=== PATIENT | male | born 1965 | race Caucasian/White ===

== ENCOUNTER → 2017-05-03 | Outpatient (CLI) | payer OTHER ==
[~2017-05-03] MED LIST: ANDROGEL; ANDROGEL1.25 GM TOP; ANDROGEL150 GM TD; BENICAR40 MG PO; BYSTOLIC 5 MG5 M1 PO; CELEXA20 MG PO; CHLORTHALIDONE25 MG PO; CLONAZEPAM 0.50.5 M1 PO; CLONAZEPAM 1 MG1 M1 PO; CLONIDINE0.1 PO; COZAAR 25 MG TA25 M1 PO; COZAAR 50 MG TA50 MG PO; DAZIDOX10 MG PO; DEPO-TESTO100 MG/1 M IM; DILAUDID 4 MG TA4 M1 PO; DIOVAN HCT 3201 EACH PO; FISHOIL PO; FLUOXETINE HCL40 MG PO; IBUPROFEN 200200 M1 PO; IBUPROFEN PO; INDOMETHACIN SR75 MG PO; MS CONTIN15 MG PO; MULTIVITAMINS PO; NAPROSYN500 MG PO; OPANA ER7.5 MG PO; OXYCODON-ACETA1 EAC1; OXYCODONE HCL15 MG PO; OXYCODONE HCL5 M1 PO; OXYCONTIN10 M1 PO; PERCOCET 5-3251 EACH PO; PREDNISONE 10 M10 MG PO; PREDNISONE 5 MG5 M1 PO; PREVACID 24HR15 MG PO; PRINIVIL10 MG PO; PROZAC 20 MG20 M1 PO; REMICADE 1100 MG/VIA; ROXICODONE15 MG PO; ROXICODONE5 M2 PO; ROXICODONE5 MG PO; TIZANIDINE HCL4 MG PO; VITAMIN B COMP1 EAC7 PO; VOLTAREN GEL 1100 G2 TOP; XANAX 0.25 MG0.25 MG PO; XANAX 0.5 MG0.5 MG PO; ZANAFLEX4 MG PO
--- NOTE | 2017-05-04 08:24 | PAINCON ---
[address] [address] PAIN MANAGEMENT CONSULTATION Name: CHIKIS TATE [id number] Admission: 05/03/17 Attend Phys: [place] Ochoa Discharge: Date of : 65 Report #: [id number] THIS REPORT FOR: //name// CC: Jayesh Tate The patient is a very pleasant 52-year-old gentleman long treated for chronic psoriatic arthritis, history of cervical radiculopathy, myofascial pain requiring high risk complex medication management. Arthritic issues primarily concerned wrists, hips, knees and ankles. The patient has long been stable on oxycodone 15 mg 4 a day. Last seen in the pain clinic on 03/08/2017. Prior in 11/2016, random drug screen is positive for prescribed medications. He returns to the pain clinic today. We had a prolonged visit reviewing therapeutic options and medication decisions. The patient returns to the pain clinic today actually with a prior generated prescription, a 4-week release prescription for his oxycodone. He has begun to wean his medication as we had discussed at prior visits. He notes subjective pain score, rates his pain as 3 on a VAS. He states injections in the past have been very helpful. He does not have any muscle spasms at this time. PHYSICAL EXAMINATION: Shows 6 feet 3 inches, 237 pounds gentleman, BMI is 29 kilograms per meter squared. Blood pressure 136/91, pulse 70 and respirations 16. Alert and oriented to person, place and time, judged to be a reasonable historian. Again some chronic pain in his wrists, knees, low back and neck today. Rises from chair easily. Gait is tandem. Lower extremity strength is preserved. We reviewed the fact that opiate medications are being used to provide analgesia adequate to support activities of daily living, not attempting to achieve a specific pain score on the 0-10 Visual Analog Scale. The current opiate medications are providing sufficient analgesia to allow the patient to participate in activities of daily living. The patient is not exhibiting any aberrant behavior suggestive of drug diversion. The patient is not having any adverse reactions to medications. The patient is not suffering from daytime somnolence or mental acuity changes. The patient is managing opiate-induced constipation with appropriate friv-nph-lplqscd agents and dietary considerations. The patient was counseled on concern for caution with operating a motor vehicle while using opiate medications. A physical exam was performed and the patient's functional status was evaluated. All patients with back pain were advised against the bed rest greater than 4 days and were advised to return to normal activities. Pain score assessment was noted and the treatment plan was reviewed with the patient. All current medications, both prescribed and OTC were [place] [address] PAIN MANAGEMENT CONSULTATION Name: CHIKIS TATE Room: [facility] Gomez#: [id number] Admission: 05/03/17 Attend Phys: [place] Ochoa Discharge: Date of : 65 Report #: [id number] electronic medical record. Tobacco screening was accomplished and smoking cessation was advised when indicated. BMI was noted and diet/exercise modification was recommended for all patients following outside normal parameters. I reviewed with the patient today their responsibilities to safeguard prescription medications, reviewed their responsibility to utilize medications only as prescribed by the physician. They are to seek and receive pain medications only from 1 physician group ( [facility]). They are to use 1 pharmacy and keep the clinic informed if they change pharmacies. Their responsibilities include making followup visits in a timely fashion and to avoid abrupt discontinuation of medication usage. Their responsibilities further include bringing their medications (bottles from the pharmacy with residual pills) to the visit for possible confirmation of pill counts and the patient understands it is their responsibility to submit to random drug screens to ensure both that the medications prescribed are present, and that no other controlled substances are present. All prescriptions provided today were generated electronically. Pain impact score is actually fairly low, 13/70. Opiate risk assessment tool anyway is noted fairly low. We discussed therapeutic options at length today and did review the opiate consent to treat contract. The patient was actually seen for over 25 minutes spent reviewing the consent to treat contract. We have discussed finding the lowest possible effective dose of opiate use and discussed concerns for opiate habituation, tolerance with the opiate crisis in [place] looming in the news. After discussion, we have elected to rotate from oxycodone 15 mg 4 a day to oxycodone 5 mg 1-2 tablets 3-4 times a day, limit 200 tablets for 30 days. This averages to roughly 33.33 mg oxycodone a day down from 45-60 mg. I did take the liberty of writing for 3 months of this medication. I will be happy to see the patient in 1 month if we need to titrate up a little bit. He has tizanidine to take p.r.n. He does use Voltaren gel topically and does not require renewal for the same. Discharged in good and stable condition today after prolonged visit, spent reviewing multiple therapeutic concerns and counseling the patient. <ELECTRONICALLY SIGNED> By: Ayaz Tate DO 05/04/17 0824 [id number] Tate DO /stuart
== END ==
LOC: M.PC 01:23
DX: L40.59 Other psoriatic arthropathy (principal); M54.12 Radiculopathy, cervical region; M79.1 Myalgia; M13.832 Other specified arthritis, left wrist; M13.831 Other specified arthritis, right wrist; M13.852 Other specified arthritis, left hip; M13.851 Other specified arthritis, right hip; M13.872 Other specified arthritis, left ankle and foot; M13.871 Other specified arthritis, right ankle and foot; Z79.899 Other long term (current) drug therapy

== ENCOUNTER → 2017-10-18 | Outpatient (CLI) | payer OTHER ==
--- NOTE | 2017-10-19 07:04 | PAINCON ---
[address] [address] PAIN MANAGEMENT CONSULTATION Name: CHIKIS TATE [facility] [id number] Admission: 10/18/17 Attend Phys: [place] Ochoa Discharge: Date of : 65 Report #: [id number] THIS REPORT FOR: //name// CC: Jayesh Tate DATE OF SERVICE: 10/18/2017 SUBJECTIVE: The patient is a 52-year-old gentleman long treated in the Pain Clinic for psoriatic arthritis, cervical radiculopathy, myofascial pain requiring complex medication management. He had been stable on high dose opiates, oxycodone 15 mg 4 a day. Prior random drug screens were positive for prescribed medications. We had elected to try and wean opiate analgesics over time. Last visit on 05/03/2017, we had rotated to oxycodone 5 mg 1-2 tablets 3-4 times a day. In the interval since we last saw him, which has now been greater than 6 months, patient self weaned off of opiates. He got down to a very low dose and occasionally zero opiates were found. Functional status was quite poor and he was using a supratherapeutic dose of dqnt-pln-jvjasym NSAID agents. He returns to pain clinic today. We had a prolonged visit, greater than 25 minutes was spent reviewing therapeutic options and interval history. Ongoing psoriatic arthritis in a gentleman. He remains quite functional, subjective pain score is 4 to a VAS. Generalized pain in his neck, low back, hips and feet. Alert and oriented to person, place and time, judged to be a reasonable historian. He has lost about 30 pounds since his last visit. He has been exercising and increasing activity. Rates his subjective pain score of 4 on a VAS. We reviewed the fact that opiate medications are being used to provide analgesia adequate to support activities of daily living, not attempting to achieve a specific pain score on the 0-10 Visual Analog Scale. The current opiate medications are providing sufficient analgesia to allow the patient to participate in activities of daily living. The patient is not exhibiting any aberrant behavior suggestive of drug diversion. The patient is not having any adverse reactions to medications. The patient is not suffering from daytime somnolence or mental acuity changes. The patient is managing opiate-induced constipation with appropriate ygts-ujl-ugjbcsd agents and dietary considerations. The patient was counseled on concern for caution with operating a motor vehicle while using opiate medications. A physical exam was performed and the patient's functional [place] [address] PAIN MANAGEMENT CONSULTATION Name: CHIKIS TATE [facility] [id number] Admission: 10/18/17 Attend Phys: [place] Ochoa Discharge: Date of : 65 Report #: [id number] All patients with back pain were advised against the bed rest greater than 4 days and were advised to return to normal activities. Pain score assessment was noted and the treatment plan was reviewed with the patient. All current medications, both prescribed and OTC were reviewed and reconciled on the electronic medical record. Tobacco screening was accomplished and smoking cessation was advised when indicated. BMI was noted and diet/exercise modification was recommended for all patients following outside normal parameters. I reviewed with the patient today their responsibilities to safeguard prescription medications, reviewed their responsibility to utilize medications only as prescribed by the physician. They are to seek and receive pain medications only from 1 physician group ( [facility]). They are to use 1 pharmacy and keep the clinic informed if they change pharmacies. Their responsibilities include making followup visits in a timely fashion and to avoid abrupt discontinuation of medication usage. Their responsibilities further include bringing their medications (bottles from the pharmacy with residual pills) to the visit for possible confirmation of pill counts and the patient understands it is their responsibility to submit to random drug screens to ensure both that the medications prescribed are present, and that no other controlled substances are present. All prescriptions provided today were generated electronically. PHYSICAL EXAMINATION: Shows 6 feet 3 inch tall, 207-pound gentleman, BMI is 26 kg/m2. Blood pressure 125/83, pulse 90s respirations 16. Cranial nerves 2-12 are grossly intact. Alert and oriented to person, place and time, judged to be a reasonable historian. Cervical range of motion is good. Upper extremity strength is preserved. Again, diffuse tenderness in his back, hands, hips and neck. Rises from the chair easily, stiff in the mornings. Lumbar range of motion is limited. Gait is tandem. No discrete skin changes are noted. ASSESSMENT: Chronic axial back pain, history of psoriatic arthritis, relatively controlled on current medications, requiring complex medication management. RECOMMENDATIONS: 1. Discussion with the patient today about therapeutic option. We have elected to rotate naproxen sodium 500 mg b.i.d. and eschew all vsjw-czg-lmdhppr anti-inflammatories. 2. Continue oxycodone 5 mg 1 tablet 4 times a day, limit to 120 tablets with a prescription to be release today and in 4 weeks. Follow up in 2 months for reevaluation. 3. Continue to use lowest opiate possible. The patient has come down significantly on his overall opiate load. Again, he had been taking 15 mg 4 times a day equivalent to 90 mg morphine equivalent. Now, he is taking at most 30 mg and typically closer to 5-10 mg [place] [address] PAIN MANAGEMENT CONSULTATION Name: CHIKIS TATE [facility] [id number] Admission: 10/18/17 Attend Phys: [place] Ochoa Discharge: Date of : 65 Report #: [id number] Discharged in good stable condition after prolonged visit. The patient was congratulated on his opiate wean. <ELECTRONICALLY SIGNED> By: Ayaz Tate DO 10/19/17 0704 [id number] Tate DO /nt
== END ==
LOC: M.PC 04:45
DX: M54.12 Radiculopathy, cervical region (principal); G89.29 Other chronic pain; Z79.899 Other long term (current) drug therapy

== ENCOUNTER → 2018-01-11 | Outpatient (CLI) | payer OTHER ==
--- NOTE | 2018-01-22 10:00 | PAINCON ---
[address] [address] PAIN MANAGEMENT CONSULTATION Name: CHIKIS TATE Room: [facility] Jasno#: [id number] Admission: 01/11/18 Attend Phys: Jenny Hidalgo MD Discharge: Date of : 65 Report #: [id number] THIS REPORT FOR: //name// CC: Jenny Boyer DO DATE OF SERVICE: 01/11/2018 HISTORY OF PRESENT ILLNESS: The patient is a 52-year-old gentleman who has been followed in the Pain Clinic by Dr. Ayaz Tate. This is my first visit with the patient. He has a history of psoriatic arthritis. He has arthritic pains in quite a number of areas including his feet as well as some number of bones and joints. Rates his pain as 3-4 at this point, 5 at its worst. States that he works at a [employer], which is quite large. He requires quite a bit of walking. He notes that that exacerbates his pain and discomfort. He has noted some elevation of his blood pressures secondary to use of nonsteroidal anti-inflammatory medications. He finds that he is quite stiff in the morning. He is going to contact his primary in regards to the possible changing of his medications to see if there is another nonsteroidal or anti-inflammatory medication he can take that would be less problematic with his blood pressure. He has a history of cervical radiculopathy as well. He has been treated with complex medical regimen. The arthritic areas of concern are mostly his wrists, hips, knees, ankles and having some increased problems with his joints in his toes. He has been stable on his current medication of Roxicodone 5 mg up to 4 tablets per day. He has been compliant with the rules and regulations of the Pain Clinic. He returns today for renewal of his medications. He has been unable to take the biologics. He states that the briggs of these medications are quite costly. He has not been able to undergo injections here in the Pain Clinic again secondary to the escalating cost of the procedures. ALLERGIES: PENICILLIN. MEDICATIONS: Alprazolam 0.5 mg t.i.d., chlorthalidone 25 mg, Voltaren gel 2 g topical q.i.d., fish oil 1000 mg, losartan 25 mg, a total of 50 daily, multivitamin, oxycodone 5 mg 1 p.o. q.i.d., tizanidine 4 mg 1 p.o. t.i.d., ibuprofen 600 mg p.r.n. PAST MEDICAL HISTORY: Symptomatic lumbar spondylosis, degenerative joint disease, lumbar radiculopathy, inflammatory arthritis, cervical radiculopathy, and hypertension. PAST SURGICAL HISTORY: Appendectomy in 1980. REVIEW OF SYSTEMS: [place] [address] PAIN MANAGEMENT CONSULTATION Name: CHIKIS TATE Room: [facility]#: [id number] Admission: 01/11/18 Attend Phys: Jenny Hidalgo MD Discharge: Date of : 65 Report #: [id number] DIAGNOSTIC DATA: MRI of thoracic and cervical spine on 09/03/2008: 1. Mild degenerative spondylosis of the cervical spine with some posterior hypertrophic changes at the C5-C6 disk space to a mild degree. 2. Negative for any spinal cord abnormalities. 3. Normal locations of cerebellar tonsils. 4. Negative for any focal protrusions or neural foraminal stenosis. PAIN CLINIC ASSESSMENT/PQRS: 1. The patient is not being treated for osteoarthritis. He has been treated for rheumatoid arthritis and has this ongoing process for about the last 20 years. 2. Height 6 feet 3 inches, weight 253 pounds, BMI is 28.3. 3. Vital signs: Blood pressure 135/93, heart rate 78, respiratory rate 16, room air saturation 98%, temperature 97.6. 4. Pain intensity: 3-4/10, increases to 5 at its worse. 5. Fall risk: The patient has not fallen in the last 3 months. 6. Blood thinner: The patient is not on a blood thinning medication. 7. Hypertension: The patient is being treated for hypertension. 8. Opioid therapy greater than 6 weeks: The patient gets his medication from one source from the Pain Clinic. 9. Risk assessment tool: Low for opioid use. 10. Functional assessment tool. 11. Recreational drug use: The patient denies. 12. Tobacco: The patient does not smoke. 13. Alcoholic beverage: The patient drinks 1 alcoholic beverage during the week. PHYSICAL EXAMINATION: GENERAL: The patient is a well-developed, well-nourished, white male. He appears his stated age. He is alert and oriented x 3. His affect is appropriate. Speech is fluent. HEENT: Normocephalic, atraumatic. Extraocular muscles intact. Sclerae nonicteric. Mucous membranes are moist. NECK: Without adenopathy or JVD. HEART: Regular rate. S1 and S2. LUNGS: Clear to auscultation. ABDOMEN: Nontender. Bowel sounds are present. MUSCULOSKELETAL: Upper extremity muscle strength is judged to be 5/5 for the major muscle groups in the upper extremity without loss of muscle bulk. Lower extremity, the patient has some pain and discomfort in the hips as well as pain in his feet. Muscle strength in the lower extremity is judged to be 5/5 for the most major muscle groups. IMPRESSION: 1. Psoriatic arthritic changes in a number of joints. 2. Symptomatic [place] [address] PAIN MANAGEMENT CONSULTATION Name: CHIKIS TATE Room: [facility]#: [id number] Admission: 01/11/18 Attend Phys: Jenny Hidalgo MD Discharge: Date of : 65 Report #: [id number] 3. Degenerative joint disease. 4. Lumbar radiculopathy. 5. Inflammatory arthritis. 6. Cervical radiculopathy. 7. Hypertension RECOMMENDATIONS: We discussed treatment options with the patient. Risks and benefits of use of opioid medication was discussed. Possible complications could include addiction as well as less effectiveness of the medication as tolerance develops. The patient does not feel tolerance is developing. He feels his medications are helpful. They enable him to stay gainfully employed and walk around his building. He would like to continue his medications. He will follow up with his primary physician in regards to whether or not there is another antihypertensive that he can take in conjunction with a nonsteroidal anti-inflammatory medication. We would like to thank you for letting us participate in his care. We hope he continues to improve. <ELECTRONICALLY SIGNED> By: Jenny Hidalgo MD 01/22/18 1000 [id number]. Jeb Hidalgo MD /stuart
== END ==
LOC: M.PC 04:46
DX: M47.26 Other spondylosis with radiculopathy, lumbar region (principal); L40.59 Other psoriatic arthropathy; I10 Essential (primary) hypertension

== ENCOUNTER → 2018-04-12 | Outpatient (CLI) | payer OTHER ==
--- NOTE | ~2018-04-12 | PAINCON ---
[address] [address] PAIN MANAGEMENT CONSULTATION Name: CHIKIS TATE Room: [facility] Jason#: [id number] Admission: 04/12/18 Attend Phys: Jenny Hidalgo MD Discharge: Date of : 65 Report #: [id number] THIS REPORT FOR: //name// CC: Jenny Boyer DATE OF SERVICE: 04/12/2018 CHIEF COMPLAINT: Foot pain. FOLLOWUP HISTORY: The patient is a 52-year-old gentleman who has been followed in the pain clinic. He has pain and discomfort from psoriatic arthritis. He has arthritic pains involving his feet. He also has pain involving a number of joints. He rates his pain today as a 2-3. He has been off work for the [place] vacation. He is working he has been standing on his feet, the whole lot less. Pain is much less, uncomfortable. He continues to use nonsteroidal anti-inflammatory medication to help with his pain. He does have quite a bit of morning stiffness. He also has a history of cervical radiculopathy. Most of his concerns of those in his wrists, hips, knees, ankles and increasing problems in his joints in his toes. He feels that his current medications of Roxicodone 5 mg up to 4 times daily are helpful. He feels that tizanidine muscle relaxant beneficial as well. He has considered use of biologics. He was told that it is about $4000 a month for these medications. He is not covered by his current insurance. ALLERGIES: PENICILLIN. CURRENT MEDICATIONS: Alprazolam 0.5 mg t.i.d., chlorthalidone 25 mg, Voltaren gel 2 g topical q.i.d., fish oil 1000 mg, losartan 25 mg a total of 50 per daily, multivitamin, oxycodone 5 mg 1 p.o. q.i.d., tizanidine 4 mg 1 p.o. t.i.d., and ibuprofen 600 mg p.r.n. PAIN CLINIC ASSESSMENT/PQRS: 1. The patient has been treated for psoriatic arthritis. He has not been treated at this juncture for osteoarthritis. 2. Rheumatoid problem has been ongoing for about the last 20 years. 3. Height 6 feet 3 inches, weight 207 pounds, BMI is 28.3. 4. Vital Signs: Blood pressure 137/88, heart rate 72, respiratory rate 16, room air saturation 97%, and temperature 98.5. 5. Pain intensity 3-4/10. 6. Fall risk. The patient has not fallen in the last 3 months. 7. Blood thinner. The patient is not on a blood thinning medication. 8. Hypertension. The patient is being treated for hypertension. 9. Opioid greater than 6 weeks. The patient receives medication from one source, the [facility]. 10. Risk assessment tool, [place] [address] PAIN MANAGEMENT CONSULTATION Name: CHIKIS TATE Room: [facility] Jason#: [id number] Admission: 04/12/18 Attend Phys: Jenny Hidalgo MD Discharge: Date of : 65 Report #: [id number] 11. Functional assessment tool. 12. Tobacco: The patient denies use of tobacco. 13. Alcoholic beverages. The patient denies alcoholic beverages. He drinks about one beverage weekly. PHYSICAL EXAMINATION: GENERAL: The patient is a well-developed, well-nourished white male. He appears his stated age. his stated age. He is alert and oriented x 3. His effects appropriate. Speech is fluent. HEENT: Normocephalic, atraumatic. Extraocular eye muscles intact. Sclerae nonicteric. NECK: Without adenopathy or JVD. HEART: Regular rate. S1, S2. LUNGS: Clear to auscultation without rhonchi or rales. ABDOMEN: Nontender. Bowel sounds present. MUSCULOSKELETAL: Judged to be 5/5 for the major muscle groups in the upper extremity. The patient has some pain and discomfort in his hips. His pain down in his feet near the toe area, he has less pain now. He has been off work for about a week and having less discomfort at this juncture. Muscle strength in the lower extremity judged to be 5/5 for the major muscle groups. No significant sensory changes in the lower extremities, neck or upper extremity. IMPRESSION: 1. Psoriatic arthritis changes in a number of joints. 2. Symptomatic lumbar spondylosis. 3. Degenerative joint disease. 4. Lumbar radiculopathy. 5. Inflammatory arthritis. 6. Cervical radiculopathy. 7. Hypertension. RECOMMENDATIONS: We discussed treatment options with the patient. We will continue with his current medical regimen of oxycodone. The patient will also continue with his nonsteroidal anti-inflammatory medications. He would like to try the biologics. He has been told that it costs about $4000 dollars per a month. Until his insurance covers that this is just not going to be an option. We would like to thank you for letting us participate in his care. A script for oxycodone 5/325 one p.o. q. 4-6 hours p.r.n. when working have been provided. By: [id number]. Jeb Hidalgo MD /stuart
== END ==
LOC: M.PC 08:10
DX: M47.26 Other spondylosis with radiculopathy, lumbar region (principal); M06.4 Inflammatory polyarthropathy; L40.59 Other psoriatic arthropathy; I10 Essential (primary) hypertension

== ENCOUNTER → 2018-07-05 | Outpatient (CLI) | payer OTHER ==
--- NOTE | ~2018-07-05 | PAINCON ---
[address] [address] PAIN MANAGEMENT CONSULTATION Name: CHIKIS TATE [id number] Admission: 07/05/18 Attend Phys: Jenny Hidalgo MD Discharge: Date of : 65 Report #: [id number] THIS REPORT FOR: //name// CC: Jenny Boyer DO DATE OF SERVICE: 07/05/2018 CHIEF COMPLAINT: Cervical radicular pain. HISTORY: The patient is a 53-year-old gentleman who has been followed in the Pain Clinic because of cervical radiculopathy. He also suffers from rheumatoid arthritis. His job is somewhat physical. He has considered a biological agent. He has been told that it could be anywhere from 6899-9459 dollars monthly for this. At this juncture, he is unable to afford this because of his deduction insurance policy. He rates his pain as a 3/10. Feels that oftentimes when he returns home by the end of the day, his pain is so great that he is unable to rest comfortably. He would like to have the oxycodone medication increase by 1 tablet. Feels that this would give him better pain control in the evening. He is taking his medication as prescribed. He notes that there is quite a bit of morning stiffness. Has some soreness in his right elbow area and the tennis elbow involvement. Has pain in his wrists, hips, knees, ankles and the joints of his toes. Feels that the muscle relaxant is helpful as well. ALLERGIES: PENICILLIN. CURRENT MEDICATIONS: Alprazolam 0.5 mg t.i.d., chlorthalidone 25 mg, Voltaren gel 2 g topical q.i.d., fish oil 1000 mg, losartan 25 mg, multivitamin, oxycodone 5 mg 1 p.o. q.i.d., tizanidine 4 mg t.i.d., ibuprofen 600 mg p.r.n. PAIN CLINIC ASSESSMENT/PQRS: 1. The patient is not being treated for osteoarthritis. He does have psoriatic arthritis. 2. Rheumatoid arthritis and this has been ongoing for the last 20 years. 3. Height 6 feet 3 inches, weight 208 pounds. BMI is 26. 4. Vital signs: Blood pressure 131/95, heart rate 77, respiratory rate 16, room air saturation 98%, and temperature 98.2. 5. Pain intensity 3/10. 6. Fall history: The patient has not fallen in the last 3 months. 7. Blood thinner. The patient is not on a blood thinning medication. 8. Hypertension. The patient is being treated for hypertension. 9. Opioids greater than 6 weeks. The patient receives his medications from one source, the Pain Clinic. 10. Risk assessment tool, low for opioid use. 11. [place] [address] PAIN MANAGEMENT CONSULTATION Name: CHIKIS TATE Room: [facility]#: [id number] Admission: 07/05/18 Attend Phys: Jenny Hidalgo MD Discharge: Date of : 65 Report #: [id number] 12. Recreational drug use. The patient denies use of recreational drugs. 13. Tobacco: The patient denies other than occasional alcoholic beverage. PHYSICAL EXAMINATION: GENERAL: The patient is a well-developed, well-nourished white male. Appears his stated age. He is alert and oriented x 3. His affect is appropriate. Speech is fluent. HEENT: Normocephalic, atraumatic. Extraocular muscles intact. Sclerae nonicteric. Mucous membranes are moist. NECK: Without adenopathy or JVD. HEART: Regular rate. S1, S2. LUNGS: Clear to auscultation without rhonchi or rales. ABDOMEN: Nontender. Bowel sounds present. MUSCULOSKELETAL: Judged to be 5/5 in the major muscle groups in the upper extremity. The patient has a compression item on his right arm for a tennis elbow type discomfort. The patient has some discomfort in his hips. He complains of pain in his feet and toes. IMPRESSION: 1. Psoriatic arthritis changes in number of joints. 2. Symptomatic lumbar spondylosis. 3. Degenerative joint disease. 4. Lumbar radiculopathy. 5. Inflammatory arthritis. 6. Cervical radiculopathy. 7. Hypertension. RECOMMENDATIONS: We discussed treatment options with the patient. We will continue with his current medical regimen. A script for his medications has been renewed. The patient feels that his pain is quite problematic particularly in the evening time. He would like to increase his oxycodone by one tablet. We will have the patient take 2 tablets of 5 mg in the morning, one at midday and two in the evening. A script for his medications of oxycodone have been written. He will call us if he has any concerns. We would like to thank you for letting us participate in his care. The patient will continue with tizanidine p.r.n. as needed. By: 0929 [id number]. Jeb Hidalgo MD /nt
== END ==
LOC: M.PC 00:27
DX: M47.26 Other spondylosis with radiculopathy, lumbar region (principal); L40.52 Psoriatic arthritis mutilans; M19.90 Unspecified osteoarthritis, unspecified site; I10 Essential (primary) hypertension; Z79.899 Other long term (current) drug therapy

== ENCOUNTER → 2018-10-02 | Outpatient (CLI) | payer OTHER ==
--- NOTE | ~2018-10-02 | PAINCON ---
[address] [address] PAIN MANAGEMENT CONSULTATION Name: CHIKIS TATE Nahomi Room: [facility] Jason#: [id number] Admission: 10/02/18 Attend Phys: Jenny Hidalgo MD Discharge: Date of : 65 Report #: [id number] THIS REPORT FOR: //name// CC: Jenny Boyer DO DATE OF SERVICE: 10/02/2018 FOLLOWUP HISTORY: Here for medication management and evaluation. HISTORY: The patient is a 53-year-old gentleman who has been followed in the Pain Clinic. He has a history of cervical radiculopathy. He also has a problem with rheumatoid arthritis. His job continues to be physical. He continues to work on a regular basis. At this point, he is unable to undergo treatment for the rheumatological problems because of the expense of the biologic agents. He feels that his medications at this point of oxycodone, ibuprofen and tizanidine have been helpful. At this juncture, he feels that the tizanidine is no longer needed, he rarely uses it. He would like to continue with the oxycodone, which he takes on a regular basis. He is aware that the opioid medications can be a problem. He rates his pain as a 2-3 at this point. He Feels his medications are working well. He has some pain in his wrists, hips, knees, ankles and number of areas. He notes that standing, walking, bending, lifting and twisting can be problematic. ALLERGIES: PENICILLIN. CURRENT MEDICATIONS: Alprazolam 0.5 mg t.i.d., chlorthalidone 25 mg, Voltaren gel 2 g topical q.i.d., fish oil 1000 mg, losartan 25 mg, multivitamin, oxycodone 5 mg 1 p.o. q.i.d. The patient does not feel that tizanidine needs to be continued, ibuprofen 600 mg. PAIN CLINIC ASSESSMENT/PQRS: 1. The patient is not being treated for osteoarthritis. He does have psoriatic arthritis. 2. The patient has been treated for rheumatoid arthritis for the last 20 years. 3. Height 6 feet 3 inches, weight 206 pounds, BMI is 26. 4. Vital Signs: Blood pressure 147/90, heart rate 75, respiratory rate 16, room air saturation is about 98%. 5. Temperature 97.5. 6. Pain intensity is 2-3/10. 7. Fall history: The patient has not fallen in the last 3 months. 8. Blood thinner. The patient is not on a blood thinning medication. 9. Hypertension. The patient is being treated for hypertension. 10. Opioid greater than 6 weeks. The patient received medication [facility] [place] [address] PAIN MANAGEMENT CONSULTATION Name: CHIKIS TATE Room: [facility]#: [id number] Admission: 10/02/18 Attend Phys: Jenny Hidalgo MD Discharge: Date of : 65 Report #: [id number] 11. Risk assessment tool, low for opioid use. 12. Functional assessment tool. 13. Recreational drug use. The patient denies use of recreational drugs. 14. Tobacco: The patient denies use of recreational drugs and denies use of other than occasional alcoholic beverage. PHYSICAL EXAMINATION: GENERAL: The patient is a well-developed, well-nourished white male. Appears his stated age. He is alert and oriented x 3. His affect is appropriate. Speech is fluent. HEENT: Normocephalic, atraumatic. Extraocular eye muscles intact. Sclerae nonicteric. Mucous membranes are moist. NECK: Without adenopathy or JVD. HEART: Regular rate. S1, S2. LUNGS: Clear to auscultation without rhonchi or rales. ABDOMEN: Nontender. Bowel sounds are present. MUSCULOSKELETAL: The patient is judged to be 5/5 in the major muscle groups in the upper extremities. The patient has some discomfort in his hips, hands and elbows. IMPRESSION: 1. Psoriatic arthritis. 2. Symptomatic lumbar spondylosis. 3. Degenerative joint disease. 4. Lumbar radiculopathy. 5. Inflammatory arthritis. 6. Cervical radiculopathy. 7. Hypertension. RECOMMENDATIONS: We discussed treatment options with the patient. At this juncture, we will continue with his current medications. He feels that the oxycodone medications are helpful. Again, we discussed the risks and benefits of opioid use. They can be helpful for most people. can have problems with the results of use of opioid medications with development of dependency. He does not feel that he is dependent. He has taken medications as prescribed. They enable him to continue to be gainfully employed and help with pain control. He has been continuing to use ibuprofen. He has no problems with his GI at this juncture. We reminded him the possibility of aspirin related medications and GI upset. He does not feel that he needs the tizanidine at this point. He is not taking it very often. He will continue with his medications. A script for his medications of oxycodone 5 mg 1 p.o. t.i.d., total 150 tablets has been written. The patient takes 2 tablets in the morning, one tablet midday and 2 tablets at bedtime. He will also continue with the ibuprofen. He will call us if he has any concerns. We would like to thank you for letting us participate in his care. We will continue with his complicated medical management using opioid medications. The patient states that he does not smoke. He had a drug [facility] [address] [place] [address] PAIN MANAGEMENT CONSULTATION Name: CHIKIS TATE Nahomi Room: [facility]#: [id number] Admission: 10/02/18 Attend Phys: Jenny Hidalgo MD Discharge: Date of : 65 Report #: [id number] screen, which showed nicotine and the client denies use of nicotine any circumstances. He also states that he has been taking his opioid medications as prescribed. The oxycodone daily has prescribed. These were negative. I am not sure, but seems to have some spurious results. Did not cooperate with the patient. Given that the nicotine is there. I do note that this was result for this patient. We will review it again in the future. By: 0849 LeeN. Jeb Hidalgo MD /LYLA
== END ==
LOC: M.PC 09-27 08:00
DX: M47.26 Other spondylosis with radiculopathy, lumbar region (principal); I10 Essential (primary) hypertension; L40.50 Arthropathic psoriasis, unspecified; Z79.899 Other long term (current) drug therapy

== ENCOUNTER → 2018-12-27 | Outpatient (CLI) | payer OTHER ==
--- NOTE | 2018-12-31 09:16 | PAINCON ---
[address] [address] PAIN MANAGEMENT CONSULTATION Name: CHIKIS TATE Nahomi [facility] [id number] Admission: 12/27/18 Attend Phys: Jenny Hidalgo MD Discharge: Date of : 65 Report #: [id number] THIS REPORT FOR: //name// CC: Jenny Boyer DO DATE OF SERVICE: 12/27/2018 CHIEF COMPLAINT: Cervical neck pain. HISTORY: The patient is a 53-year-old gentleman who has been followed in the pain clinic. As you may recall, he has some cervical radicular pain. He also suffers from rheumatoid arthritis. Continues and has a very hectic job. It is very physical. He feels that his medications enable him to stay gainfully employed in this field. He has not been able to use a biological agents for his rheumatoid secondary to the cost. Continues to have pain in the upper as well as in his lower back. He has started a new medication for his arthritis. Has returned to work. He has quite a bit of discomfort because he works on his feet all day. He has returned today with the hope of renewing his medications of oxycodone. ALLERGIES: PENICILLIN. CURRENT MEDICATIONS: Alprazolam 0.5 mg, chlorthalidone 25 mg, Voltaren gel 2 g topical q.i.d., fish oil 1000 mg, losartan 25 mg, multivitamins, oxycodone 5 mg 1 p.o. q.i.d., and ibuprofen 600 mg b.i.d. PAIN CLINIC ASSESSMENT/PQRS: 1. The patient is not being treated for osteoarthritis. He does have psoriatic arthritis. 2. Height 6 feet 3 inches, weight 202 pounds, BMI is 25. 3. Vital signs: Blood pressure 154/74, heart rate 72, respiratory rate 18, room air saturation is 99, temperature 97.7. 4. Pain intensity 06/17. 5. Fall history: The patient has not fallen in the last 3 months. 6. Blood thinner. The patient is not on a blood thinning medication. 7. Hypertension. The patient is being treated for hypertension. 8. Opioids greater than 6 weeks. The patient received medication from one source the pain clinic. 9. Risk assessment tool, low for opioid use. 10. Functional assessment tool. 11. Recreational drug use. The patient denies. 12. Tobacco: The patient denies use of recreational drugs other [place] [address] PAIN MANAGEMENT CONSULTATION Name: CHIKIS TATE Room: [facility]#: [id number] Admission: 12/27/18 Attend Phys: Jenny Hidalgo MD Discharge: Date of : 65 Report #: [id number] PHYSICAL EXAMINATION: GENERAL: The patient is a well-developed, well-nourished white male. Appears his stated age. He is alert and oriented x 3. His affect is appropriate. Speech is fluent. HEENT: Normocephalic, atraumatic. Extraocular eye muscles intact. Sclerae nonicteric. Mucous membranes are moist. NECK: Without adenopathy or JVD. HEART: Regular rate. S1, S2. LUNGS: Clear to auscultation without rhonchi or rales. ABDOMEN: Nontender. Bowel sounds present. MUSCULOSKELETAL: The patient has pain in the upper extremity. Muscle strength judged to be 5/5 for the major muscle groups in the upper extremity. The patient has some discomfort in his hips, hands, and down his elbows because of the arthritis. IMPRESSION: 1. Psoriatic arthritis. 2. Symptomatic lumbar spondylosis. 3. Degenerative joint disease. 4. Lumbar radiculopathy. 5. Inflammatory arthritis. 6. Cervical radiculopathy. 7. Hypertension. RECOMMENDATIONS: We discussed treatment options with the patient. At this juncture, we will continue with his medications. He feels that the medications are helpful. He is aware that opioid medications can be helpful, but can become less potent as time goes by because of development of tolerance. He feels that the medications continue to be helpful. He would like to have the Roxicodone medications renewed. A script for his medications of Roxicodone 5 mg, total of 150 tablets per month have been released. The patient will continue with the ibuprofen. He will monitor his GI tract with hopes that he does not have any side effects from it is chronic use. Hopefully, the patient's new medication for his arthritis will be efficacious as well. He will call us if he has any concerns. We would like to thank you for letting us participate in his care. We hope he continues to improve. <ELECTRONICALLY SIGNED> By: Jenny Hidalgo MD 12/31/18 0916 [id number]. Jeb Hidalgo MD /LYLA
== END ==
LOC: M.PC 05:03
DX: Z88.0 Allergy status to penicillin (principal); M47.26 Other spondylosis with radiculopathy, lumbar region; L40.50 Arthropathic psoriasis, unspecified; I10 Essential (primary) hypertension; Z79.899 Other long term (current) drug therapy; Z79.891 Long term (current) use of opiate analgesic

== ENCOUNTER → 2019-03-19 | Outpatient (CLI) | payer OTHER ==
[~2019-03-19] MED LIST changes: +ORENCIA CL125 MG/1 M SUBQ
--- NOTE | ~2019-03-19 | PAINCON ---
[address] [address] PAIN MANAGEMENT CONSULTATION Name: CHIKIS TATE Nahomi [id number] Admission: 03/19/19 Attend Phys: Jenny Hidalgo MD Discharge: Date of : 65 Report #: [id number] THIS REPORT FOR: //name// CC: Jenny Boyer DATE OF SERVICE: 03/19/2019 CHIEF COMPLAINT: Neck pain. HISTORY: The patient is a 53-year-old gentleman who has been followed in the pain clinic because of pain in number of areas. He does suffer from psoriatic arthritis, has some pain involving his feet, back and hands. This has been ongoing for a number of years. He feels that his current use of oxycodone and ibuprofen enable him to stay gainfully employed. The patient is unable because of the cost to undergo a biologic agent treatment for his rheumatological problem. He has noted some worsening of his pain because of the increased work and over time that he is doing. Notes that the pain is worse when he is walking, standing, climbing stairs, sitting, bending, and lifting. ALLERGIES: PENICILLIN. CURRENT MEDICATIONS: Alprazolam 0.5 mg, chlorthalidone 25 mg, Voltaren gel 2 g topical q.i.d., fish oil 1000 mg, losartan 25 mg, multivitamins, oxycodone 5 mg 1 p.o. q.i.d., ibuprofen 600 mg b.i.d. PAIN CLINIC ASSESSMENT AND PQRS: 1. The patient is not being treated for osteoarthritis. He does have psoriatic arthritis. 2. Height 6 feet 3 inches, weight 214 pounds, BMI is 26.7. 3. Vital Signs: Blood pressure 147/86, heart rate 80, respiratory rate 16, room air saturation oxygen 99%, temperature 98.0. 4. Pain intensity score is 2/10. 5. Fall history: The patient has not fallen in the last 3 months. 6. Blood thinner. The patient is not on a blood thinning medication. 7. Hypertension. The patient is being treated for hypertension. 8. Opioids greater than 6 weeks. The patient received medication from one source, the pain clinic. 9. Risk assessment tool, low for opioid use. 10. Functional assessment tool. 11. Recreational drug use: The patient denies. 12. Tobacco: The patient denies use of recreational drugs other than occasional alcoholic beverage. PHYSICAL EXAMINATION: GENERAL: The patient is a well-developed, well-[place] [address] PAIN MANAGEMENT CONSULTATION Name: CHIKIS TATE Room: [facility]#: [id number] Admission: 03/19/19 Attend Phys: Jenny Hidalgo MD Discharge: Date of : 65 Report #: [id number] his stated age. He is alert and oriented x 3. His affect is appropriate. Speech is fluent. HEENT: Normocephalic, atraumatic. Extraocular eye muscles intact. Sclerae nonicteric. Mucous membranes are moist. NECK: Without adenopathy or JVD. HEART: Regular rate. ABDOMEN: Nontender. Bowel sounds present. LUNGS: Clear to auscultation without rhonchi or rales. MUSCULOSKELETAL: The patient's upper extremity muscle strength judged to be 5/5 for the major muscle groups. The patient does complain of some pain and discomfort down into his back and feet. Notes that standing and walking at work exacerbates his discomfort. Continues to have pain in the hips, hands, and down to his elbow because of the arthritis. IMPRESSION: 1. Psoriatic arthritis with pain. 2. Symptomatic lumbar spondylosis. 3. Degenerative joint disease. 4. Lumbar radiculopathy. 5. Inflammatory arthritis. 6. Cervical radiculopathy. 7. Hypertension. RECOMMENDATIONS: We discussed treatment options with the patient. Risks and benefits of opioid medications were discussed. The patient feels that the use of the nonsteroidal anti-inflammatory medications are helpful. He is not having any problems with his GI tract. He will stop taking the medication should he note some GI irritation. The patient finds that the use of oxycodone is helpful. He is able to continue to be gainfully employed. He is not causing any problems with his sensorium. He is not having any other complications associated with opioids. He is aware that opioid medications can be problematic in certain people. He has not shown any signs of addiction. Keeps his medications in a guarded area. He would like to have the medications renewed so he could continue to be active. A script for Roxicodone 5 mg 2 tablets in the morning, 1 tablet midday and 2 tablets at bedtime have been written. He will continue with his medications. A script for 3 months of this medication has been provided. He will call us if he has any concerns. We would like to thank you for letting us participate in his care. We hope he continues to improve. By: [id number]. Jeb Hidalgo MD /LYLA
== END ==
LOC: M.PC 05:05
DX: L40.59 Other psoriatic arthropathy (principal); M47.26 Other spondylosis with radiculopathy, lumbar region; M19.90 Unspecified osteoarthritis, unspecified site; I10 Essential (primary) hypertension; Z79.899 Other long term (current) drug therapy; Z79.891 Long term (current) use of opiate analgesic; Z88.0 Allergy status to penicillin

== ENCOUNTER → 2019-06-11 | Outpatient (CLI) | payer OTHER ==
--- NOTE | ~2019-06-11 | PAINCON ---
[address] [address] PAIN MANAGEMENT CONSULTATION Name: CHIKIS TATE [id number] Admission: 06/11/19 Attend Phys: Jenny Hidalgo MD Discharge: Date of : 65 Report #: [id number] THIS REPORT FOR: //name// cc: Trisha Velasquez Maggie M. DO ~ THIS REPORT FOR: //name// CC: Trisha Hidalgo DATE OF SERVICE: 06/11/2019 CHIEF COMPLAINT: Neck pain. HISTORY: The patient is a 54-year-old gentleman who has been followed in the pain clinic because of cervical radicular pain. He has noted some increasing pain between his shoulders over the last few days. He has had more difficulty sleeping. He does have pain, which he rates as 4-5/10. Overall, it is about 50% improved with his current medical regimen. He notes that walking, standing, climbing stairs, going from a sitting to a standing position can increase his discomfort. He has some lower back pain as well. He was seen and imaged. He was told that he has scoliosis. He is not sure whether or not this is contributing to his pain. Pain is worse when he wakes up in the morning. He continues to be followed by his physician because of psoriatic arthritis. ALLERGIES: PENICILLIN. CURRENT MEDICATIONS: Alprazolam 0.5 mg, chlorthalidone 25 mg, Voltaren gel 2 g topical q.i.d., fish oil 1000 mg, losartan 25 mg, multivitamins, oxycodone 5 mg 1 p.o. q.i.d., and ibuprofen 600 mg b.i.d. p.r.n. PAIN CLINIC ASSESSMENT AND PQRS: 1. The patient is not being treated for osteoarthritis. 2. Psoriatic arthritis. The patient is being treated for psoriatic arthritis. 3. Height 6 feet 3 inches, weight 205 pounds, BMI is 25. 4. Vital Signs: Blood pressure 136/86, heart rate 76, respiratory rate 16, room air saturation is 97%. 5. Pain intensity is 4-5/10. 6. Fall history: The patient has not fallen in the last 3 months. 7. Blood thinner. The patient is not on a blood thinning medication. 8. Hypertension. The patient is being treated for hypertension. 9. Opioids greater than 6 weeks. The patient received medication from one source, the pain clinic. 10. Risk assessment tool, low for opioid use. 11. Functional assessment tool ____ has been reviewed. 12. Recreational drug use. The patient denies [place] [address] PAIN MANAGEMENT CONSULTATION Name: BEBETOCHIKIS Room: [facility]#: [id number] Admission: 06/11/19 Attend Phys: Jenny Hidalgo MD Discharge: Date of : 65 Report #: [id number] 14. Alcohol. The patient denies use of alcoholic beverages on a regular basis, but drinks about 1 beer weekly. PHYSICAL EXAMINATION: GENERAL: The patient is a well-developed, well-nourished white male. Appears his stated age. He is alert and oriented x 3. His affect is appropriate. Speech is fluent. HEENT: Normocephalic, atraumatic. Extraocular eye muscles intact. Sclerae nonicteric. Mucous membranes are moist. NECK: Without adenopathy or JVD. HEART: Regular rate. The patient has some pain and discomfort between the shoulder blades. ABDOMEN: Nontender. Bowel sounds present. LUNGS: Generally clear to auscultation without rhonchi or rales. MUSCULOSKELETAL: The patient's upper extremity judged to be 5/5 for the major muscle groups. The patient does complain of some pain and discomfort in his back and in his feet. He notes that prolonged walking and standing at work exacerbates his discomfort. The patient has pain in his hips, hands, and down into his elbow because of arthritis. IMPRESSION: 1. Psoriatic arthritis with pain. 2. Symptomatic lumbar spondylosis. 3. Degenerative joint disease. 4. Lumbar radiculopathy. 5. Inflammatory arthritis. 6. Cervical radiculopathy. 7. Hypertension. RECOMMENDATIONS: We discussed treatment options with the patient. At this juncture, we will continue with his medications. He finds the medications are helpful. He continues to use his nonsteroidal anti-inflammatory medication. He is not having significant problem with his GI tract at this juncture. He feels that the oxycodone remains helpful. He remains gainfully employed. He has been told that he has scoliosis. He had imaging at an outside facility. He will have the information sent to the pain clinic. We explained that use of a brace might be helpful in the long run given that he has scoliosis. He will consider that option. A script for his medications of Roxicodone 5 mg 2 tablets in the morning, 1 tablet midday and 2 tablets at bedtime have been rewritten. He will also continue to keep his medications in a guarded area. He is aware that these medications can become less effective over time, they can cause some patients to develop dependency. He has not shown any signs of dependency. He has taken the medication as prescribed. [facility] [address] [place] [address] PAIN MANAGEMENT CONSULTATION Name: CHIKIS TATE Room: [facility]#: [id number] Admission: 06/11/19 Attend Phys: Jenny Hidalgo MD Discharge: Date of : 65 Report #: [id number] We would like to thank you for letting us participate in his care. We hope he continues to improve. By: [id number]. Jeb Hidalgo MD /nt
== END ==
LOC: M.PC 08:10
DX: M19.90 Unspecified osteoarthritis, unspecified site (principal); I10 Essential (primary) hypertension; L40.50 Arthropathic psoriasis, unspecified; M47.26 Other spondylosis with radiculopathy, lumbar region; M51.16 Intervertebral disc disorders with radiculopathy, lumbar region; Z88.0 Allergy status to penicillin

== ENCOUNTER → 2019-09-03 | Outpatient (CLI) | payer OTHER ==
--- NOTE | 2019-09-09 09:22 | PAINCON ---
[address] [address] PAIN MANAGEMENT CONSULTATION Name: CHIKIS TATE Room: [facility] Jason#: [id number] Admission: 09/03/19 Attend Phys: Jenny Hidalgo MD Discharge: Date of : 65 Report #: [id number] THIS REPORT FOR: //name// cc: Jayesh Boyer Steve T. DO ~ THIS REPORT FOR: //name// CC: DYANA Sanches DATE OF SERVICE: 09/03/2019 CHIEF COMPLAINT: Here for medication renewal. I have had the COVID-19 infection as well as my . HISTORY: The patient is a 54-year-old gentleman who has been followed in the Pain Clinic. He suffers from cervical radiculopathy. He has had some pain and discomfort in his shoulders. He has had pain that radiates down into his right leg and foot. He is experiencing some numbness. He would like to proceed with an epidural steroid injection. These have been helpful in the past. He feels that his medications simply takes the edge off. Feels that he is receiving about 20-25% benefit from the medications. Notes that standing in one place is quite problematic. He is experiencing pain that is radiating down the right buttocks and into his right leg to the level of his foot with numbness. He will return to the Pain Clinic for an epidural steroid injection. We will renew the patient's medications today. ALLERGIES: PENICILLIN. CURRENT MEDICATIONS: Alprazolam 0.5 mg, chlorthalidone 25 mg, Voltaren gel 2% topical q.i.d., fish oil 1000 mg, losartan 25 mg, multivitamins, oxycodone 5 mg q.i.d., ibuprofen 600 mg b.i.d. PAIN CLINIC ASSESSMENT/PQRS: 1. The patient is not being treated for osteoarthritis. He does have psoriatic arthritis and he is being treated. 2. Height 6 feet 3 inches, weight 210 pounds, BMI is 25. 3. Vital Signs: Blood pressure is 147/87, heart rate 72, respiratory rate 14, room air saturation 98%, and temperature 98.0. 4. Pain intensity is 4/10. 5. Fall history: The patient has not fallen in the last 3 months. 6. Blood thinner. The patient is not on a blood thinning medication. 7. Hypertension. The patient is being treated for hypertension. 8. Opioids greater than 6 weeks. The patient receives medication from one source [place] [address] PAIN MANAGEMENT CONSULTATION Name: BEBETOCHIKIS Room: [facility]#: [id number] Admission: 09/03/19 Attend Phys: Jenny Hidalgo MD Discharge: Date of : 65 Report #: [id number] 9. Risk assessment tool, low for opioid use. 10. Functional assessment tool reviewed. 11. Recreational drug use. The patient denies. 12. The patient denies use of tobacco. 13. Alcohol. The patient denies frequent use of alcoholic beverages. PHYSICAL EXAMINATION: GENERAL: The patient is a well-developed, well-nourished white male. Appears his stated age. He is alert and oriented x 3. His affect is appropriate. Speech is fluent. HEENT: Normocephalic, atraumatic. Extraocular eye muscles intact. Sclerae nonicteric. Mucous membranes are moist. NECK: Without adenopathy or JVD. HEART: Regular rate. ABDOMEN: Nontender. Bowel sounds present. LUNGS: Without significant rhonchi or rales. MUSCULOSKELETAL: Upper extremity muscle strength is judged to be 5/5 for the major muscle groups in the upper extremity. The patient has pain and discomfort in his back and radiating down to his feet. He is noting increased pain and discomfort with prolonged standing. IMPRESSION: 1. Psoriatic arthritis with pain, symptomatic lumbar spondylosis. 2. Degenerative joint disease. 3. Lumbar radiculopathy. 4. 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 5. Cervical radiculopathy history. 6. Hypertension. RECOMMENDATIONS: We discussed treatment options with the patient. At this point, we will continue with his medications. A script for his medications has been provided. He will continue with oxycodone 5 mg 1 p.o. 5 tablets daily. He will also continue with his ibuprofen p.r.n. He will continue with his alprazolam 0.5 mg. He will use clonazepam 1 mg at bedtime. The patient will be evaluated for possibility of a lumbar epidural steroid injection at his next return. We would like to thank you for letting us participate in his care. We hope he continues to improve. <ELECTRONICALLY SIGNED> By: Jenny Hidalgo MD 09/09/19 0922 [id number]. Jeb Hidalgo MD /nt
== END ==
LOC: M.PC 04:20
DX: M47.26 Other spondylosis with radiculopathy, lumbar region (principal); M25.511 Pain in right shoulder; M25.512 Pain in left shoulder; M19.90 Unspecified osteoarthritis, unspecified site; I10 Essential (primary) hypertension; Z87.39 Personal history of other diseases of the musculoskeletal system and connective tissue; Z79.899 Other long term (current) drug therapy

== ENCOUNTER → 2019-09-26 | Outpatient (CLI) | payer OTHER ==
--- NOTE | 2019-10-17 15:40 | PAINCON ---
[address] [address] PAIN MANAGEMENT CONSULTATION Name: CHIKIS TATE Room: [facility]#: [id number] Admission: 09/26/19 Attend Phys: Jenny Hidalgo MD Discharge: Date of : 65 Report #: [id number] THIS REPORT FOR: //name// cc: Jayesh Boyer Steve T. DO ~ THIS REPORT FOR: //name// CC: Jenny Boyer DATE OF SERVICE: 09/26/2019 CHIEF COMPLAINT: Low back and hip pain. HISTORY: The patient is a 54-year-old gentleman who has returned to the pain clinic because of chronic pain. He would like to proceed with an epidural steroid injection. He is having pain in the right buttocks and pain that radiates down into the posterior portion of his leg at times with numbness and tingling. Rates his pain as a 6/10. He has been using nonsteroidal anti-inflammatory medications as well as oxycodone to help control the pain. ALLERGIES: PENICILLIN. CURRENT MEDICATIONS: Alprazolam 0.5 mg, chlorthalidone 25 mg, Voltaren gel 2% topical q.i.d., fish oil 1000 mg, losartan 25 mg, multivitamins, oxycodone 5 mg q.i.d., ibuprofen 600 mg b.i.d. PAIN CLINIC ASSESSMENT AND PQRS: 1. The patient is not being treated for osteoarthritis. He has psoriatic arthritis and is being treated for this. 2. Height 6 feet 3 inches, weight 205 pounds, BMI 25. 3. Vital signs: Blood pressure is 123/90, heart rate 71, respiratory rate 13, room air saturation is 97%, temperature 98.4. 4. Pain intensity 6/10. 5. Fall history: The patient has not fallen in the last 3 months. 6. Blood thinner. The patient is not on a blood thinning medication. 7. Hypertension. The patient is being The patient is being treated for hypertension. 8. Opioids greater than 6 weeks. The patient received medication from the pain clinic. 9. Risk assessment tool, low for opioid use. 10. Functional assessment tool reviewed. 11. Recreational blood Recreational drug use. The patient denies use of recreational drugs. 12. The patient denies use of tobacco. 13. Alcohol. The patient denies frequent [place] [address] PAIN MANAGEMENT CONSULTATION Name: CHIKIS TATE Room: [facility]#: [id number] Admission: 09/26/19 Attend Phys: Jenny Hidalgo MD Discharge: Date of : 65 Report #: [id number] PHYSICAL EXAMINATION: GENERAL: The patient is a well-developed, well-nourished white male. Appears his stated age. He is alert and oriented x 3. His affect is appropriate. Speech is fluent. HEENT: Normocephalic, atraumatic. Extraocular eye muscles intact. Sclerae nonicteric. Mucous membranes are moist. NECK: Without adenopathy or JVD. HEART: Regular rate. ABDOMEN: Nontender. Bowel sounds present. LUNGS: Clear, without rhonchi or rales. MUSCULOSKELETAL: Upper extremity muscle strength judged to be 5/5 for the major muscle groups in the upper extremity. The patient has pain and discomfort in his back with radiation down into his feet. Pain increases with prolonged standing. IMPRESSION: 1. Psoriatic arthritis with pain. 2. Symptomatic lumbar spondylosis. 3. Degenerative joint disease. 4. Lumbar radiculopathy. 5. Inflammatory inflammation secondary to arthritis. 6. Cervical radiculopathy history. 7. Hypertension. RECOMMENDATIONS: We discussed treatment options with the patient. Risks and benefits of an epidural steroid injection were again discussed. They include but are not limited to infection, worsening pain, no improvement in pain, nerve damage, bleeding. We also talked about the Covid-19 virus, steroids can decrease one's immune response. Should the patient contact Covid-19 he may have a less favorable outcome. He feels his pain is problematic and would like to proceed. PROCEDURE NOTE: The patient was taken to the procedure area. He was then assisted in getting on examination table. His back was sterilely prepped with a Betadine solution. A 0.25% bupivacaine was infiltrated at the L5-S1 area. Fluoroscopy using anterior, posterior as well as lateral viewing were implemented. A total of 80 mg Depo-Medrol, 40 mg triamcinolone was injected after a 17-gauge Tuohy was used to gain access to the epidural space. There was no CSF, heme or paresthesia. The patient remained in the pain clinic for an appropriate amount of time. He will follow up in the future as needed. [address] [address] PAIN MANAGEMENT CONSULTATION Name: CHIKIS TATE Room: [facility] Jason#: [id number] Admission: 09/26/19 Attend Phys: Jenny Hidalgo MD Discharge: Date of : 65 Report #: [id number] We would like to thank you for letting us participate in his care. We hope he continues to improve. <ELECTRONICALLY SIGNED> By: Jenny Hidalgo MD 10/17/19 1540 [id number]. Jeb Hidalgo MD /nt
== END | disposition home or self-care (01) ==
LOC: M.PC 09:00
PROVIDERS: ATTEND Anesthesiology Pain Medicine
DX: M51.16 Intervertebral disc disorders with radiculopathy, lumbar region (principal); M47.26 Other spondylosis with radiculopathy, lumbar region; G89.29 Other chronic pain; I10 Essential (primary) hypertension; Z98.890 Other specified postprocedural states; Z79.899 Other long term (current) drug therapy; Z88.0 Allergy status to penicillin

== ENCOUNTER → 2019-11-26 | Outpatient (CLI) | payer OTHER ==
--- NOTE | ~2019-11-26 | PAINCON ---
[address] [address] PAIN MANAGEMENT CONSULTATION Name: CHIKIS TATE Room: [facility]#: [id number] Admission: 11/26/19 Attend Phys: Jenny Hidalgo MD Discharge: Date of : 65 Report #: [id number] THIS REPORT FOR: //name// cc: Jayesh Boyer Steve T. DO ~ THIS REPORT FOR: //name// CC: Jenny Boyer DATE OF SERVICE: 11/26/2019 PRIMARY CARE PHYSICIAN: Jayesh Boyer DO CHIEF COMPLAINT: "The pain improved after the epidural injection in the back." HISTORY: The patient is a 54-year-old gentleman who has been followed in the pain clinic because of chronic pain. He had been experiencing pain in his low back as well as in his hip. He underwent an epidural steroid injection and noted a significant improvement in his discomfort. He rates his pain today as a 3/10. He has less ____ leg numbness on the right. He feels better than he has felt in a long time. He has had no complications from the procedure. Notes that the pain is still problematic with prolonged standing and walking. He did go to [place] for vacation. He did continue with social distancing. Overall, he had a good time. He would like to have his medications renewed. He is not having any new concerns. ALLERGIES: PENICILLIN. CURRENT MEDICATIONS: Alprazolam 0.5 mg, chlorthalidone 25 mg, Voltaren gel 2% topical q.i.d., fish oil 1000 mg, losartan 25 mg, multivitamins, oxycodone 5 mg q.i.d., ibuprofen 600 mg b.i.d. PAIN CLINIC ASSESSMENT AND PQRS: 1. The patient is not being treated for osteoarthritis. He has some psoriatic arthritic condition for which he is being treated. 2. Height 6 feet 3 inches, weight 204 pounds, BMI is 25.6. 3. Vital signs: Blood pressure 139/101, heart rate 74, respiratory rate 18, room air saturation 97%, temperature 96.2. 4. Pain intensity, 3-4/10. 5. Fall history: The patient has not fallen in the last 3 months. 6. Blood thinner. The patient is not on a blood thinning medication. 7. Hypertension. The patient is being treated for hypertension. 8. Opioids greater than 6 weeks. The patient receives medication from the pain clinic. 9. Risk assessment tool, low [place] [address] PAIN MANAGEMENT CONSULTATION Name: CHIKIS TATE Nahomi Room: [facility]#: [id number] Admission: 11/26/19 Attend Phys: Jenny Hidalgo MD Discharge: Date of : 65 Report #: [id number] 10. Functional assessment tool, reviewed. 11. Recreational drug use: The patient denies. 12. Tobacco. The patient denies use of tobacco. 13. Alcohol. The patient denies frequent use of alcoholic beverages. PHYSICAL EXAMINATION: GENERAL: The patient is a well-developed, well-nourished white male. Appears his stated age. He is alert and oriented x 3. His affect is appropriate. Speech is fluent. HEENT: Normocephalic, atraumatic. Extraocular eye muscles intact. Sclerae nonicteric. Mucous membranes are moist. The patient is wearing a mask. NECK: Without adenopathy or JVD. HEART: Regular rate. LUNGS: Clear. ABDOMEN: Nontender. EXTREMITIES: Upper extremity muscle strength judged to be 5/5 for the major muscle groups in the upper extremity. Lower extremity, the patient without significant scoliosis, kyphosis or lordosis. The patient has less pain and discomfort in the low back area and less pain radiating down into his right leg. IMPRESSION: 1. Psoriatic arthritis with pain. 2. Symptomatic lumbar spondylosis. 3. Degenerative joint disease. 4. Lumbar radiculopathy. 5. 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 6. Cervical radiculopathy history. 7. Hypertension. RECOMMENDATIONS: We discussed treatment options with the patient. At this juncture, he feels things are going reasonably well. We will continue with his medications of oxycodone 5 mg 1 p.o. t.i.d. He will continue with his medications as prescribed. He is aware that opioid medications can become less effective over time because of development of tolerance. He is aware that certain people have developed problems with opioids and developed an addiction. He has not shown any signs of addiction. He keeps his medications in a guarded area. He feels overall that things have improved after last injection. He is having less low back pain and less hip pain. He notes that the right leg numbness on the buttocks and down his leg has improved. He will continue with his medications. A script for his medications for the next 3 months have been provided. He will call us if he has any concerns. [address] [address] PAIN MANAGEMENT CONSULTATION Name: CHIKIS TATE Room: [facility]#: [id number] Admission: 11/26/19 Attend Phys: Jenny Hidalgo MD Discharge: Date of : 65 Report #: [id number] We would like to thank you for letting us participate in his care. We hope he continues to improve. By: [id number]. Jeb Hidalgo MD /LYLA
== END ==
LOC: M.PC 08:00
PROVIDERS: ATTEND Anesthesiology Pain Medicine
DX: L40.50 Arthropathic psoriasis, unspecified (principal); M19.90 Unspecified osteoarthritis, unspecified site; M47.26 Other spondylosis with radiculopathy, lumbar region; I10 Essential (primary) hypertension

== ENCOUNTER 2020-01-25 11:52 | Inpatient (IN) | payer OTHER ==
[~2020-01-25] VITALS: Ht 190.5 cm; Wt 92.5 kg
[2020-01-25 12:04] VITALS: BP 137/87
[2020-01-25] MEDS ORDERED: CHLORTHALIDONE50 MG PO (12:07)
[2020-01-25] MEDS ORDERED: COZAAR 25 MG TA25 M1 PO (12:07)
[2020-01-25] MEDS ORDERED: OXYCODONE HCL5 MG PO (12:08)
[2020-01-25] MEDS ORDERED: IBU800 MG PO (12:08)
[2020-01-25 12:44] LABS: ABSOLUTE LYMPHOCYTES 1.3 thou/uL (0.8-5.3); ABSOLUTE MONOCYTES 0.7 thou/uL (0.0-1.2); ABSOLUTE NEUTROPHILS 4.6 thou/uL (1.6-8.1); BASOPHILS 0.7 %; EOSINOPHILS 0.7 %; HEMOGLOBIN 14.9 gm/dL (14.0-18.0); LYMPHOCYTES 19.3 %; MCH 31.6 pg (26.0-34.0); MCHC 35.4 g/dL (28.0-37.0); MCV 89.3 fL (80.0-100.0); MONOCYTES 10.4 %; MPV 7.9 fl. (7.2-11.1); NUCLEATED RBCS 0 /100WBC; PLATELET COUNT* 172 thou/uL (150-400); POLYS 68.9 %; RBC 4.71 mil/uL (4.50-6.00); WBC 6.7 thou/uL (4.0-11.0)
[2020-01-25 12:53] LABS: CALCIUM 8.8 mg/dL (8.5-10.1); CREATININE 1.1 mg/dL (0.6-1.3); POTASSIUM 3.5 mmol/L (3.5-5.1)
[2020-01-25 12:57] LABS: ALBUMIN 3.9 g/dL (3.4-5.0); TOTAL BILIRUBIN 0.8 mg/dL (<0.1-1.0); TOTAL PROTEIN 7.4 g/dL (6.4-8.2)
[2020-01-25 13:50] LABS: ESR (SEDRATE) 4 mm/hr (0-20)
[2020-01-25 16:00] VITALS: BP 147/84; BP 167/92
[2020-01-25] MEDS ORDERED: CLONAZEPAM 0.50.5 M1 PO (16:32)
--- NOTE | 2020-01-25 18:28 | NUR ---
PATIENT ARRIVED FROM ER THIS AFTERNOON. PATIENT SETTLED TO ROOM. HISTORY, ASSESSMENT AND VITALS COMPLETED AND DOCUMENTED. PATIENT'S RIGHT INDEX FINGER IS RED AND INFLAMMED, NO OPEN AREA. PATIENT HAS COMPLAINTS OF PAIN 5/10, TREATED PARTIALLY WITH MEDICATION. PATIENT IS UP AD DARLIN. PATIENT DENIES ANY NEEDS AT THIS TIME. CALL LIGHT WITHIN REACH.
[2020-01-25 20:00] VITALS: BP 143/86
[2020-01-26] VITALS: BP 127/71
--- NOTE | 2020-01-26 04:12 | NUR ---
PATIENT SLEPT WELL DURING THIS SHIFT. PT WITH 1999 TEMP OF 100.2; HYDROCODONE 2 TABS GIVEN. TEMP RECHECKED AT MIDNIGHT FOUND TO BE 101.4; DR ARTEAGA NOTIFIED; NO NEW ORDERS. TEMP AT 0400 100.1. PT RESTING COMFORTABLY. PT NPO SINCE MIDNIGHT. FLUIDS INFUSING PER ORDER. FREQUENTLY USED ITEMS AND CALL LIGHT WITHIN REACH. SIDERAILS UPX2. WILL CONTINUE TO MONITOR.
[2020-01-26 09:40] VITALS: BP 141/89
[2020-01-26 16:00] VITALS: BP 129/70
--- NOTE | 2020-01-26 18:28 | NUR ---
PATIENT RESTING IN BED. PATIENT IS UP AD DARLIN IN ROOM. PATIENT HAS SURGERY TO RIGHT INDEX FINGER THIS AM WITHOUT INCIDENT. PATIENT HAS HAD COMPLAINTS OF PAIN, TREATED ADEQUATELY WITH HYDROCODONE AND ELEVATION. PATIENT DENIES ANY NEEDS AT THIS TIME. CALL LIGHT WITHIN REACH.
[2020-01-26 20:30] VITALS: BP 126/82
[2020-01-27] VITALS: BP 114/63
[2020-01-27 04:00] VITALS: BP 122/83
--- NOTE | 2020-01-27 06:29 | NUR ---
PATIENT SLEPT MOST OF THE NIGHT. IV FLUIDS AND VANC WERE GIVEN ORDERED. PATIENT HAS HAD A LOW GRADE TEMP MOST OF THE NIGHT. PAIN MEDICINE WAS GIVEN ONCE THIS SHIFT. WILL CONTINUE TO MONITOR
[2020-01-27 07:30] VITALS: BP 123/77
[2020-01-27 11:40] VITALS: BP 128/79
[2020-01-27 14:20] LABS: ABSOLUTE EOSINOPHILS 0.1 thou/uL (0.0-0.7); ABSOLUTE LYMPHOCYTES 1.4 thou/uL (0.8-5.3); ABSOLUTE MONOCYTES 0.7 thou/uL (0.0-1.2); BASOPHILS 0.5 %; EOSINOPHILS 2.5 %; HEMATOCRIT 35.5 % (42.0-52.0); LYMPHOCYTES 27.6 %; MCH 31.7 pg (26.0-34.0); MCHC 35.4 g/dL (28.0-37.0); MCV 89.6 fL (80.0-100.0); MONOCYTES 12.4 %; MPV 8.3 fl. (7.2-11.1); NUCLEATED RBCS 0 /100WBC; PLATELET COUNT* 167 thou/uL (150-400); RBC 3.96 mil/uL (4.50-6.00); RDW-CV 12.8 % (10.5-14.5); WBC 5.2 thou/uL (4.0-11.0)
[2020-01-27 14:21] LABS: HEMOGLOBIN 12.6 gm/dL (14.0-18.0)
[2020-01-27 14:24] LABS: CALCIUM 8.4 mg/dL (8.5-10.1); CREATININE 0.9 mg/dL (0.6-1.3); POTASSIUM 3.8 mmol/L (3.5-5.1)
--- NOTE | 2020-01-27 14:57 | OP ---
[address] [address] OPERATIVE REPORT Name: BEBETOCHIKIS L Room: [address] [place] .R.#: [id number] Admission: 01/25/20 Attend Phys: Nicole Forrester Discharge: Date of : 65 Report #: [id number] THIS REPORT FOR: //name// cc: Jayesh Boyer Steve T. DO ~ CC: Corie Boyer DATE OF SERVICE: 01/26/2020 PREOPERATIVE DIAGNOSIS: Acute pyogenic right index finger flexor tenosynovitis. POSTOPERATIVE DIAGNOSIS: Acute pyogenic right index finger flexor tenosynovitis. SURGERY PERFORMED: Incision and debridement of the right index finger flexor tendon sheath proximal and distal and throughout. SURGEON: Rick Stuart DO CHIEF MAINTENANCE SUPERVISOR: Castro. SECOND SPRIGGER: Ryan. ANESTHESIA: General anesthetic. DESCRIPTION OF PROCEDURE: The patient has been on scheduled vancomycin and Rocephin antibiotics. He has no drains. He has no specimens. Cultures x 2 to the flexor tendon purulence. The patient did not demonstrate any other gross findings on physical examination of the hand or fingers except he was in a posturing position preoperatively. The patient did demonstrate significant purulence clinically as well. The patient estimated blood loss was nil. Again, no specimens except the cultures that were taken. SURGERY IN DETAIL: The patient was taken to the operating room and placed on the table, given the benefit of general anesthetic. He underwent a chlorhexidine prep and sterile draping for right finger surgery. A timeout was called and verified by everyone in the room for the right index finger. Under loupe magnification, surgery began with a saber-type incision at the A1 fanny crease with a 15-blade scalpel through skin and subcutaneous tissues in the distal crease as well noted over the proximal phalanx was likewise obliquely incised with the same scalpel. Blunt dissection was carried down to the flexor tendon. The A1 fanny was totally released through. Once the A1 fanny was released, flexor tendon sheath was opened and the tendons were exposed. There was purulence noted proximally and distally. These sites were cultured. An angiocatheter was placed within the tendon sheath [place] [address] OPERATIVE REPORT Name: CHIKIS TATE Room: [address] [place] [facility].#: [id number] Admission: 01/25/20 Attend Phys: Nicole Forrester Discharge: Date of : 65 Report #: [id number] normal saline was placed through this tendon sheath with movement of the finger throughout the entire time to flush out any residual potential purulence. The surgery continued with closure of the skin and then with just simple 3-0 nylon. Xeroform, 4 x 4, Kerlix, bulky hand dressing was applied to the hand. He was transferred off the table and taken to recovery in stable condition. I attest I was present for all critical aspects of surgery. Needle, instrument, sponge counts correct. <ELECTRONICALLY SIGNED> By: Rick Stuart DO 01/27/20 1457 0914Rick Stuart DO /nt
[2020-01-27 15:19] LABS: ESR (SEDRATE) 35 mm/hr (0-20)
[2020-01-27 15:42] VITALS: BP 124/85
--- NOTE | 2020-01-27 16:13 | NUR ---
PT.LIVES WITH . SHE CAN HELP HIM NEEDED. HE IS NORMALLY INDEPENDENT. NO USE OF DME OR HX OF HH. HE SAID WANTS TO DO A DSG.CHANGE TOMORROW. HE SAID HOPEFULLY CX WILL BE BACK. TALKED LIKE TOLD HIM PROBABLY HOME ON [employer]IOT[employer].
--- NOTE | 2020-01-27 18:16 | NUR ---
PATIENT GIVEN PRN VICODIN FOR PAIN WITH GOOD RELIEF NOTED. IVF AND SCHED ABX INFUSED ORDERED. UP AD DARLIN. NWB RIGHT ARM, ABLE TO WIGGLE FINGERS AND CAP REFILL <3 SECONDS. RIGHT ARM ELEVATED AT ALL TIMES.
[2020-01-27 20:20] VITALS: BP 145/93
--- NOTE | 2020-01-28 05:05 | NUR ---
ASSUMED PT'S CARE THIS PM SHIFT. PT ALERT AND ORIENTED. VSS ON RA. MEDS GIVEN PER EMAR. PRN PAIN MED GIVEN THIS SHIFT. PT AMBULATES INDEPENDENTLY. ENCOURAGED TO CALL WHEN NEEDING ASSISTANCE. CALL LIGHT WITHIN REACH. WILL CONTINUE TO MONITOR.
[2020-01-28 07:15] VITALS: BP 144/91
[2020-01-28] MEDS ORDERED: CEFDINIR300 MG PO (09:39)
[2020-01-28] MEDS ORDERED: CLEOCIN HCL300 MG PO (09:39)
[2020-01-28 09:46] VITALS: BP 144/91
--- NOTE | 2020-01-28 10:05 | NUR ---
PT GIVEN DISCHARGE INFORMATION. CARE NOTES, AND PRESCRIPTIONS. IV REMOVED. PT BELONGINGS GATHERED. PT LEFT AMBULATORY WITH NURSING STAFF TO HOME. FALL RISK PRECAUTIONS IN PLACE. HOURLY ROUNDING COMPLETED.
== END 2020-01-28 10:32 | disposition home or self-care (01) | DRG 514 ==
LOC: M.ERS 11:52 → M.ORTHSURG 14:17 → M.TBA-ER 14:17 → M.ORTHSURG 15:56
PROVIDERS: Physician Assistant; ADMIT Internal Medicine; ATTEND Internal Medicine
PROC: 0LD70ZZ Extraction of Right Hand Tendon, Open Approach (ICD-10-PCS; principal; 2020-01-26)
DX: M65.141 Other infective (teno)synovitis, right hand (principal); L40.50 Arthropathic psoriasis, unspecified; I10 Essential (primary) hypertension; M19.90 Unspecified osteoarthritis, unspecified site; F41.9 Anxiety disorder, unspecified; Z20.828 Contact with and (suspected) exposure to other viral communicable diseases; Z88.0 Allergy status to penicillin; Z90.49 Acquired absence of other specified parts of digestive tract; Z87.891 Personal history of nicotine dependence; Z82.49 Family history of ischemic heart disease and other diseases of the circulatory system; Z79.899 Other long term (current) drug therapy; Z23 Encounter for immunization

== ENCOUNTER → 2020-02-25 | Outpatient (CLI) | payer OTHER ==
[~2020-02-25] MED LIST changes: +CEFDINIR300 MG PO; +CHLORTHALIDONE50 MG PO; +CLEOCIN HCL300 MG PO; +IBU800 MG PO; +OXYCODONE HCL5 MG PO; +VOLTAREN GEL 1100 G1 TOP
--- NOTE | 2020-03-12 14:42 | PAINCON ---
[address] [address] PAIN MANAGEMENT CONSULTATION Name: CHIKIS TATE Room: [facility]#: [id number] Admission: 02/25/20 Attend Phys: Jenny Hidalgo MD Discharge: Date of : 65 Report #: [id number] THIS REPORT FOR: //name// cc: Trisha Velasquez Maggie M. DO ~ CC: Trisha Boyer DO DATE OF SERVICE: 02/25/2020 CHIEF COMPLAINT: Still having quite a bit of pain and here for medication renewal. HISTORY: The patient is a 54-year-old gentleman who has a history of low back, hip, shoulder pain as well as pain in his feet. He has been having difficulty sleeping lately. He recently had surgery on his right second index finger. He is still having pain. Pain is worse in the morning. Also, has pain in the back, which is worse when he is lying flat. He feels overall that his pain is about 50%, helped with his current medical regimen. He would like to continue with the medication. He notes that walking, standing, prolonged climbing stairs can be problematic. He feels that his , use of heat, cold and stretching are still helpful. He feels oxycodone is helpful. He also finds ibuprofen beneficial. He is not having any significant problem with his GI tract at this juncture. ALLERGIES: PENICILLIN. CURRENT MEDICATIONS: Alprazolam 0.5 mg, chlorthalidone 25 mg, Voltaren gel 2% topical q.i.d., fish oil 1000 mg, losartan 25 mg, multivitamins, oxycodone 5 mg q.i.d., ibuprofen 800 mg b.i.d. PAIN CLINIC ASSESSMENT AND PQRS: 1. The patient is not being treated for osteoarthritis. He has some psoriatic arthritic condition for which he has been treated. 2. Height 6 feet 3 inches, weight 205 pounds, BMI 25.9. 3. Vital signs: Blood pressure 136/78, heart rate 83, respiratory rate 16, room air saturation is 98%, temperature 97.6. 4. Pain intensity 5/10. 5. Fall history: The patient has not fallen in the last 3 months. 6. Blood thinner. The patient is not on a blood thinning medication. 7. Hypertension. The patient is being treated for hypertension. 8. Opioids greater than 6 weeks. The patient received medication from the pain clinic. 9. Risk assessment tool, low for opioid use. 10. Functional [place] [address] PAIN MANAGEMENT CONSULTATION Name: CHIKIS TATE Nahomi Room: [facility]#: [id number] Admission: 02/25/20 Attend Phys: Jenny Hidalgo MD Discharge: Date of : 65 Report #: [id number] 11. Recreational drug use: The patient denies. 12. Tobacco: The patient denies use of tobacco. 13. Alcohol. The patient denies frequent use of alcoholic beverages. PHYSICAL EXAMINATION: GENERAL: The patient is a well-developed, well-nourished white male. Appears his stated age. He is alert and oriented x 3. His affect is appropriate. Speech is fluent. HEENT: Normocephalic, atraumatic. Extraocular eye muscles intact. Sclerae nonicteric. Mucous membranes moist. The patient is wearing a mask. NECK: Without adenopathy. HEART: Regular rate. LUNGS: Clear. ABDOMEN: Nontender. EXTREMITIES: Upper extremity muscle strength judged to be 5/5 for the major muscle groups in the upper extremity. The patient has had surgery on his right second index finger. IMPRESSION: 1. Psoriatic arthritis with pain. 2. Symptomatic lumbar spondylosis. 3. Degenerative joint disease. 4. Lumbar radiculopathy history. 5. 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 6. Cervical radiculopathy history. 7. Hypertension. RECOMMENDATIONS: We discussed treatment options with the patient. Risks and benefits of opioid medications were again discussed. The patient feels that the medications of oxycodone are helpful. Continues to find these medications beneficial. He continues to monitor his GI tract because the use of ibuprofen can cause GI upset. We will continue with his current medications. Hopefully, his finger will continue to heal. We will continue with his current medications. He finds that he is about 50% improved with these medications. We would like to thank you for letting us participate in his care. We hope he continues to improve. A script for his medications of 5 mg 1 p.o. t.i.d. of oxycodone tablets have been sent to his pharmacy. <ELECTRONICALLY SIGNED> By: Jenny Hidalgo MD 03/12/20 [id number]. Jeb Hidalgo MD /stuart
== END ==
LOC: M.PC 12-24 08:40
PROVIDERS: ATTEND Anesthesiology Pain Medicine
DX: M54.5 Low back pain (principal); M25.559 Pain in unspecified hip

== ENCOUNTER → 2020-05-19 | Outpatient (CLI) | payer OTHER | LOC: M.PC 07:40 | PROVIDERS: ATTEND Anesthesiology Pain Medicine | DX: M51.36 Other intervertebral disc degeneration, lumbar region (principal); I10 Essential (primary) hypertension; M47.816 Spondylosis without myelopathy or radiculopathy, lumbar region; Z87.39 Personal history of other diseases of the musculoskeletal system and connective tissue ==

== ENCOUNTER → 2020-08-11 | Outpatient (CLI) | payer OTHER | LOC: M.PC 07:37 | PROVIDERS: ATTEND Anesthesiology Pain Medicine | DX: M47.26 Other spondylosis with radiculopathy, lumbar region (principal); M51.16 Intervertebral disc disorders with radiculopathy, lumbar region; L40.50 Arthropathic psoriasis, unspecified; I10 Essential (primary) hypertension; M25.559 Pain in unspecified hip; Z88.0 Allergy status to penicillin; Z79.899 Other long term (current) drug therapy ==

== ENCOUNTER → 2020-11-03 | Outpatient (CLI) | payer OTHER ==
[~2020-11-03] MED LIST changes: +VOLTAREN ARTHRI20 GM TOP
== END ==
LOC: M.PC 07:43
PROVIDERS: ATTEND Anesthesiology Pain Medicine
DX: L40.59 Other psoriatic arthropathy (principal); M47.26 Other spondylosis with radiculopathy, lumbar region; M19.90 Unspecified osteoarthritis, unspecified site; I10 Essential (primary) hypertension; Z79.891 Long term (current) use of opiate analgesic; Z79.899 Other long term (current) drug therapy

== ENCOUNTER → 2021-01-26 | Outpatient (CLI) | payer OTHER ==
[~2021-01-26] MED LIST changes: +XELJANZ XR11 MG PO
== END ==
LOC: M.PC 08:00
PROVIDERS: ATTEND Anesthesiology Pain Medicine
DX: M47.26 Other spondylosis with radiculopathy, lumbar region (principal); M51.16 Intervertebral disc disorders with radiculopathy, lumbar region; I10 Essential (primary) hypertension; M25.559 Pain in unspecified hip; L40.59 Other psoriatic arthropathy; Z90.49 Acquired absence of other specified parts of digestive tract; Z88.0 Allergy status to penicillin

== ENCOUNTER → 2021-04-20 | Outpatient (CLI) | payer OTHER | LOC: M.PC 07:58 | PROVIDERS: ATTEND Anesthesiology Pain Medicine | DX: M47.26 Other spondylosis with radiculopathy, lumbar region (principal); M51.16 Intervertebral disc disorders with radiculopathy, lumbar region; L40.59 Other psoriatic arthropathy; I10 Essential (primary) hypertension; Z87.891 Personal history of nicotine dependence; Z88.0 Allergy status to penicillin; Z90.49 Acquired absence of other specified parts of digestive tract; Z79.899 Other long term (current) drug therapy ==